=== PATIENT | female | born 1950 | race Caucasian/White ===

== ENCOUNTER 2019-03-20 19:18 | Emergency (ER) | payer MEDICARE ==
[2019-03-20 19:44] LABS: Bilirubin Negative (Negative); Blood, Urine Large (Negative); Clarity Clear (Clear); Glucose, Urine (Dipstick) Negative (Negative); Leukocyte Trace (Negative); Nitrite Negative (Negative); Protein, Urine (Dipstick) 30 mg/dL (Neg-Trace); Specific Gravity, Urine 1.015 (1.005-1.030); Urobilinogen 0.2 mg/dL (0.2-1.0)
[2019-03-20] MEDS ORDERED: Fentanyl 100 MCG/2 ML VIAL ONE (19:47)
[2019-03-20] MEDS ORDERED: Ondansetron PF 4 MG/2 ML Vial ONE ×2 (19:47→20:27)
[2019-03-20 20:02] LABS: ALT (SGPT) 16 U/L (8-55); AST (SGOT) 23 U/L (5-34); Albumin 4.4 g/dL (3.4-4.8); Alkaline Phosphatase 57 U/L (40-150); Anion Gap 17 mmol/L (10-20); BUN (Urea Nitrogen) 20 mg/dL (9.8-20.1); Bilirubin, Total 0.4 mg/dL (0.2-1.2); Calc. Creatinine Clearance 0 mL/min (70-130); Calcium 9.8 mg/dL (7.8-10.44); Carbon Dioxide 23 mmol/L (23-31); Chloride 104 mmol/L (98-107); Estimated GFR-MDRD 64; Globulin 2.9 g/dL (2.4-3.5); Glucose 103 mg/dL (80-115); Potassium 4.2 mmol/L (3.5-5.1); Protein, Total 7.3 g/dL (6.0-8.3); Sodium 140 mmol/L (136-145)
[2019-03-20 20:12] LABS: #Basophils 0.1 thou/uL (0.0-0.2); #Eosinphils 0.3 thou/uL (0.0-0.7); #Lymphocytes 3.1 thou/uL (1.20-3.40); #Monocytes 0.7 thou/uL (0.11-0.59); %Basophils 1.7 % (0.0-1.0); %Eosinophils 4.1 % (0.0-10.0); %Lymphocytes 37.1 % (21.0-51.0); %Monocytes 8.6 % (0.0-10.0); %Neutrophils 48.5 % (42.0-75.0); Hemoglobin 13.5 g/dL (12.0-16.0); Mean Corpuscular HGB CONC 32.5 g/dL (32.0-36.0); Mean Corpuscular Hemoglobin 30.4 pg (27.0-31.0); Mean Corpuscular Volume 93.8 fL (78.0-98.0); Platelet Count 262 thou/uL (130-400); RBC Distribution Width 11.4 % (11.5-14.5); Red Blood Cell (RBC) Count 4.43 mill/uL (4.20-5.40); White Blood Cell (WBC) Count 8.2 thou/uL (4.8-10.8)
--- NOTE | 2019-03-20 20:14 | CT ---
CT Stone Protocol: 03/20/2019 7:31 PM HISTORY: Left flank pain radiating to the left lower quadrant COMPARISON: None. Procedure: Multiple contiguous axial images were obtained and a CT of the abdomen and pelvis without IV contrast . Coronal reformats were performed. FINDINGS: This examination is limited for the evaluation of solid organs and vascular structures due to the lac k of intravenous contrast. Lower Chest: within normal limits. Abdomen: Liver: Small hypodensity in the anterior liver likely represents a cyst. Bile Ducts: Normal caliber. Gallbladder: No calcified gallstones. Normal caliber wall. Pancreas: within normal limits. Spleen: within normal limits. Adrenals: within normal limits. Kidneys: There is mild enlargement of the left renal pelvis and proximal ureter which is tortuous and transitions to a normal caliber along its midportion near an overlapping gonadal vein . No calcification is seen in the left kidney or ureter. No right sided hydronephrosis is seen. No renal c alcifications Pelvis: Reproductive Organs: No pelvic masses. Ureters: within normal limits. Bladder: within normal limits. Bowel: Normal caliber. Mesenteric Lymph Nodes: No enlarged mesenteric lymph nodes. Peritoneum: No ascites or free air, no fluid collection. Vessels: Atherosclerotic calcifications in the aorta Retroperitoneum: within normal limits. Abdominal Wall: within normal limits. Bones: Degenerative changes in the spine. IMPRESSION: Mild left hydronephrosis may be secondary to compression on the ureter by an overlapping vessel.
[2019-03-20 20:16] LABS: Bacteria/HPF Rare-Few HPF (None Seen); RBC/HPF GREATER THAN 50-TNTC HPF (0-3); Squamous Epithelial 0-3 HPF (0-3)
[2019-03-20] MEDS ORDERED: Ketorolac Tromethamine 30 MG/ML VIAL ONE (20:29)
[2019-03-20] MEDS ORDERED: Morphine 4 MG/ML VIAL ONE (21:34)
== END 2019-03-20 22:03 | disposition home or self-care (01) ==
LOC: NAV ERS 19:18
DX: N13.2 Hydronephrosis with renal and ureteral calculous obstruction (principal); F17.210 Nicotine dependence, cigarettes, uncomplicated
CPT/HCPCS: 74176; 80053; 81003; 81015; 85025; 96361; 96374; 96375; 96376; J1170; J1885; J2270; J2405; J3010

== ENCOUNTER 2023-02-18 12:17 | Emergency (ER) | payer MEDICARE ==
[2023-02-18] MEDS ORDERED: Prochlorperazine 10 MG/2 ML VIAL ONE (13:20)
[2023-02-18] MEDS ORDERED: Ketorolac Tromethamine 30 MG/ML VIAL ONE (13:20)
[2023-02-18] MEDS ORDERED: Sodium Chloride 0.9% 1,000 ML ONE (13:20)
[2023-02-18] MEDS ORDERED: diphenhydrAMINE 50 MG/ML VIAL ONE (13:20)
[2023-02-18] MEDS ORDERED: Acetaminophen 500 MG TAB ONE (13:51)
== END 2023-02-18 15:14 | disposition home or self-care (01) ==
LOC: NAV ERS 12:17
DX: R51.9 Headache, unspecified (principal); I10 Essential (primary) hypertension; Z87.891 Personal history of nicotine dependence
CPT/HCPCS: 96365; 96375; J0780; J1200; J1885; J7050

== ENCOUNTER 2024-03-18 13:12 | Outpatient (CLI) | payer MEDICARE | END 2024-03-18 13:13 | disposition home or self-care (01) | LOC: NAV RAD 13:12 | PROVIDERS: ATTEND Student in an Organized Health Care Education/Training Program | DX: M25.511 Pain in right shoulder (principal); M19.011 Primary osteoarthritis, right shoulder ==

== ENCOUNTER 2024-04-13 08:31 | Emergency (ER) | payer MEDICARE, OTHER | END 2024-04-13 09:50 | disposition home or self-care (01) | LOC: NAV ERS 08:31 | DX: S82.831A Other fracture of upper and lower end of right fibula, initial encounter for closed fracture (principal); Z87.891 Personal history of nicotine dependence; W18.42XA Slipping, tripping and stumbling without falling due to stepping into hole or opening, initial encounter; Y92.007 Garden or yard of unspecified non-institutional (private) residence as the place of occurrence of the external cause | CPT/HCPCS: 29515 ==